=== PATIENT | male | born 1965 | race African-American/Black ===

== ENCOUNTER 2016-12-22 15:31 | Emergency (ER) | payer MEDICAID ==
[~2016-12-22] VITALS: Ht 180.3 cm; Wt 67.3 kg
[2016-12-22 16:38] VITALS: BP 127/85
== END 2016-12-22 16:45 | disposition home or self-care (01) ==
LOC: ER 15:58
DX: R06.02 Shortness of breath (principal)
CPT/HCPCS: 71010; 93005; 99284

== ENCOUNTER 2016-12-23 15:29 | Emergency (ER) | payer SELFPAY ==
[~2016-12-23] VITALS: Ht 180.3 cm; Wt 80.0 kg
[2016-12-23 15:55] VITALS: BP 145/86
== END 2016-12-23 18:16 | disposition left against medical advice (07) ==
LOC: ER 18:15
DX: M54.9 Dorsalgia, unspecified (principal); Z53.21 Procedure and treatment not carried out due to patient leaving prior to being seen by health care provider